=== PATIENT | female | born 1970 | race Caucasian/White ===

== ENCOUNTER → 2016-12-11 | Outpatient (CLI) | payer OTHER ==
--- NOTE | 2016-12-11 17:17 | Diagnostic Imaging Report ---
PROCEDURE: MRI lumbar spine. TECHNIQUE: Multiplanar, multisequence MRI of the lumbar spine was performed without contrast. INDICATION: Back pain, right leg pain. FINDINGS: The previous MRI lumbar spine exam performed on 12/29/2015 noted degenerative disc, ligamentous, and bony disease at L4-5 and L5-S1. Specifically, there was narrowing of the disc space at L5-S1 with desiccation of the disc and bilateral foraminal stenosis. There was also mild trefoil stenosis at L4-5 with neural foraminal narrowing, again more so on the right. Those degenerative changes are again visualized on this study and do not seem to have progressed. At the L3-4 level, there is a slight disc bulge centrally. The disc narrows the AP diameter of the thecal sac to 10.4 mm. This is similar to the prior exam. There is mild narrowing of the neural foramen bilaterally at this level. At the L2-3 level, there is no evidence for spinal stenosis or nerve root encroachment. The L1-2 level is also unremarkable for spinal stenosis or nerve root encroachment. There is no abnormal signal arising from the cord or the vertebral bodies to indicate an acute abnormality. There is no sign of a paraspinal mass. IMPRESSION: 1. The degenerative disc, ligamentous, and bony disease at the L4-5 and L5-S1 level seen previously does not appear to have progressed significantly. There is still mild trefoil stenosis at both these levels as well as narrowing of the neural foramen bilaterally, particularly on the right. 2. The remainder of the lumbar spine is unchanged when compared to the prior study. No new area of spinal stenosis or nerve root encroachment has developed. 3. There is no acute bony abnormality identified, and there is no sign of a cord lesion. Dictated by: Dictated on workstation # [id number]
== END ==
LOC: RAD 16:02
PROVIDERS: ATTEND Orthopaedic Surgery
DX: M47.817 Spondylosis without myelopathy or radiculopathy, lumbosacral region (principal); M51.37 Other intervertebral disc degeneration, lumbosacral region
CPT/HCPCS: 72148

== ENCOUNTER → 2019-07-07 | Outpatient (CLI) | payer OTHER ==
--- NOTE | 2019-07-07 09:03 | Diagnostic Imaging Report ---
INDICATION: Routine screening. COMPARISON: 05/08/2012. TECHNIQUE: 2D and 3D bilateral screening mammography was performed with CAD. FINDINGS: Both breasts are heterogeneously dense, limiting the sensitivity of mammography. There are densities in the outer portions of both breasts which appear more prominent than on the prior exam. In the right breast at posterior depth, there is a slightly irregular density, best seen on the CC view. Additional views of this should be performed. In the left breast in the outer aspect and at posterior depth, there is a density (best seen on tomographic image #48) on the CC views. Additional views of this area should be performed as well. No definite correlates are identified on the MLO views. No suspicious microcalcifications are seen. The axillae are unremarkable. IMPRESSION: Bilateral breast densities. Additional views are recommended for further evaluation. ACR BI-RADS Category 0: Incomplete. (Needs additional imaging evaluation). Result letter will be mailed to the patient. Note: At least 10% of breast cancer is not imaged by mammography. Dictated by: Dictated on workstation # [id number]
== END ==
LOC: RAD 07:56
PROVIDERS: ATTEND Obstetrics & Gynecology
DX: Z12.31 Encounter for screening mammogram for malignant neoplasm of breast (principal)
CPT/HCPCS: 77067

== ENCOUNTER → 2019-11-12 | Outpatient (CLI) | payer OTHER ==
--- NOTE | 2019-11-12 17:29 | Diagnostic Imaging Report ---
INDICATION: Bilateral breast densities. Patient presented for additional views. CORRELATION is made with recent screening study from 07/07/2019. 2-D and 3-D bilateral diagnostic mammography was performed with CAD. This includes spot compression CC views bilaterally, rolled CC views bilaterally as well as mediolateral views bilaterally. Also a spot compression mediolateral view on the right was performed. There is a persistent nodular density in the outer aspect of the right breast posterior depth approximately 8 to 9 cm from the nipple. Further evaluation of this area with ultrasound is recommended. The density noted in the outer left breast on screening study appears to resolve with additional views and most likely represents superimposed tissue. IMPRESSION: BI-RADS 0. 1. Unremarkable left breast. 2. Persistent slightly nodular density in the outer right breast posterior depth. Further evaluation with ultrasound is recommended and will be performed today. ACR BI-RADS Category 0: Incomplete. (Needs additional imaging evaluation). Result letter will be mailed to the patient. Note: At least 10% of breast cancer is not imaged by mammography. Dictated by: Dictated on workstation # [id number]
--- NOTE | 2019-11-12 20:28 | Diagnostic Imaging Report ---
INDICATION: Right breast density. COMPARISON: Correlation is made with diagnostic mammogram earlier the same day as well as screening mammogram from 07/07/2019. EXAMINATION: Sonographic interrogation of the outer right breast was performed. FINDINGS: There is an area of slightly irregular hypoechogenicity at the 8:30 location of the right breast, 6 cm from the nipple. This measures 7 mm x 6 cm x 10 mm. This is concerning for a small breast mass. No internal vascularity is seen. There are some dilated ducts in the retroareolar right breast. Right axilla is unremarkable. IMPRESSION: Irregular hypoechogenicity at the 8:30 location of right breast, 6 cm from the nipple, concerning for a small breast neoplasm. Tissue sampling is recommended. This would be amenable to ultrasound-guided core biopsy. ACR BI-RADS Category 4: Suspicious abnormality. Result letter will be mailed to the patient. Note: At least 10% of breast cancer is not imaged by mammography. Dictated by: Dictated on workstation # [id number]
== END ==
LOC: RAD 14:03
PROVIDERS: ATTEND Obstetrics & Gynecology
DX: R92.2 Inconclusive mammogram (principal)
CPT/HCPCS: 76642; 77066; G0279; 77062

== ENCOUNTER → 2019-11-18 | Outpatient (CLI) | payer OTHER ==
[~2019-11-18] VITALS: Ht 170.2 cm; Wt 101.4 kg
[~2019-11-18] MED LIST: LIDOCAINE 1% INJ 20 ML 20 ML VIAL INJ ONE
--- NOTE | 2019-11-18 10:14 | Diagnostic Imaging Report ---
INDICATION: Right breast nodule. Patient presents for biopsy. DETAILS OF THE PROCEDURE: The patient was brought to the procedure room and placed on the table in the supine position. Ultrasound imaging of the right breast was performed to evaluate for an appropriate entry site. The right breast was then prepped and draped in the usual sterile fashion. A small amount of 1% lidocaine was utilized for local anesthesia. A total of five core biopsies of the hypoechoic nodule at the 8:30 to 9 o'clock location of the right breast 6 cm from the nipple was performed utilizing a 14-gauge Achieve needle. A marker clip was then deployed. Hemostasis was obtained using manual compression. The patient tolerated the procedure well. The patient obtained a post procedure mammogram and then left the Department in satisfactory condition. IMPRESSION: Successful ultrasound-guided core biopsy of the hypoechoic nodule at the 8:30 to 9 o'clock location of the right breast. The Pathology results are currently pending. Dictated by: Dictated on workstation # [id number]
--- NOTE | 2019-11-18 10:24 | Diagnostic Imaging Report ---
INDICATION: Right breast nodule, status post biopsy. TECHNIQUE: Unilateral right CC and ML 2D mammography was performed [id number] biopsy. FINDINGS: A marker clip is identified in the outer aspect of the right breast at mid depth. IMPRESSION: Marker clip, status post ultrasound-guided biopsy. Dictated by: Dictated on workstation # [id number]
== END ==
LOC: RAD 08:22
PROVIDERS: ATTEND Obstetrics & Gynecology
DX: N63.10 Unspecified lump in the right breast, unspecified quadrant (principal)
CPT/HCPCS: 19083; 77065; A4648; G0279

== ENCOUNTER → 2020-02-21 | Outpatient (CLI) | payer OTHER | LOC: LABNPT 05:50 | PROVIDERS: ATTEND Surgery | DX: Z20.828 Contact with and (suspected) exposure to other viral communicable diseases (principal) | CPT/HCPCS: 87635 ==

== ENCOUNTER → 2020-03-13 | Outpatient (CLI) | payer OTHER | LOC: LABNPT 08:09 | PROVIDERS: ATTEND Surgery | DX: Z01.812 Encounter for preprocedural laboratory examination (principal); Z20.828 Contact with and (suspected) exposure to other viral communicable diseases | CPT/HCPCS: 87635 ==

== ENCOUNTER → 2020-04-10 | Outpatient (CLI) | payer OTHER | LOC: LABNPT 05:15 | PROVIDERS: ATTEND Surgery | DX: Z20.828 Contact with and (suspected) exposure to other viral communicable diseases (principal) | CPT/HCPCS: 87635 ==

== ENCOUNTER → 2020-05-08 | Outpatient (CLI) | payer OTHER | LOC: LABNPT 09:12 | PROVIDERS: ATTEND Family Medicine | DX: Z20.822 Contact with and (suspected) exposure to COVID-19 (principal) | CPT/HCPCS: 87635 ==

== ENCOUNTER → 2020-06-12 | Outpatient (CLI) | payer OTHER | LOC: LABNPT 08:25 | PROVIDERS: ATTEND Nurse Practitioner Family | DX: C50.511 Malignant neoplasm of lower-outer quadrant of right female breast (principal); Z17.0 Estrogen receptor positive status [ER+]; Z20.822 Contact with and (suspected) exposure to COVID-19 | CPT/HCPCS: 87635 ==

== ENCOUNTER 2020-10-27 08:00 | Emergency (ER) | payer OTHER ==
[~2020-10-27] VITALS: Ht 171 cm; Wt 104.0 kg
[2020-10-27 08:30] LABS: BASOPHILS % (AUTO) 0 % (0-10); EOSINOPHILS # (AUTO) 0.3 10^3/uL (0.0-0.3); EOSINOPHILS % (AUTO) 4 % (0-10); HEMATOCRIT 38 % (35-52); HEMOGLOBIN 12.1 g/dL (11.5-16.0); LYMPHOCYTES # (AUTO) 1.3 10^3/uL (1.0-4.0); LYMPHOCYTES % (AUTO) 17 % (12-44); MEAN CORPUSCULAR HEMOGLOBIN 28 pg (25-34); MEAN CORPUSCULAR HGB CONC 32 g/dL (32-36); MEAN CORPUSCULAR VOLUME 86 fL (80-99); MEAN PLATELET VOLUME 10.1 fL (9.0-12.2); MONOCYTES # (AUTO) 0.8 10^3/uL (0.0-1.0); MONOCYTES % (AUTO) 10 % (0-12); NEUTROPHILS # (AUTO) 5.2 10^3/uL (1.8-7.8); NEUTROPHILS % (AUTO) 68 % (42-75); PLATELET COUNT 199 10^3/uL (130-400); WHITE BLOOD COUNT 7.6 10^3/uL (4.3-11.0)
[2020-10-27] MEDS ORDERED: [UNRECOGNIZED DRUG - CODE] TP (08:30)
[2020-10-27] MEDS ORDERED: ERGO1250 PO (08:30)
[2020-10-27] MEDS ORDERED: CYAN100T37 PO (08:30)
[2020-10-27] MEDS ORDERED: CALCIUM (08:30)
[2020-10-27] MEDS ORDERED: ANAS1TAB50 PO (08:30)
[2020-10-27] MEDS ORDERED: ALPHA LIPOIC ACID (08:30)
[2020-10-27 08:39] LABS: ALBUMIN 3.8 GM/DL (3.2-4.5)
[2020-10-27 08:40] LABS: CHLORIDE 107 MMOL/L (98-107); POTASSIUM 3.5 MMOL/L (3.6-5.0); SODIUM 142 MMOL/L (135-145)
[2020-10-27 08:41] LABS: CALCIUM 8.7 MG/DL (8.5-10.1)
[2020-10-27 08:42] LABS: GLUCOSE 108 MG/DL (70-105)
[2020-10-27 08:43] LABS: CARBON DIOXIDE 23 MMOL/L (21-32)
--- NOTE | 2020-10-27 08:43 | Diagnostic Imaging Report ---
INDICATION: Chest pain, history of breast cancer. Frontal chest obtained at 8:40 a.m. There is no prior study for comparison. Heart and mediastinal silhouette are normal in appearance. There is relatively poor inspiration and the lungs appear grossly clear. There is no pneumothorax or pleural fluid. Port-A-Cath is seen over the left chest with tip overlying the SVC. IMPRESSION: Relatively poor inspiration but no acute process visualized. Dictated by: Dictated on workstation # [id number]
[2020-10-27 08:44] LABS: BILIRUBIN,TOTAL 0.4 MG/DL (0.1-1.0)
[2020-10-27 08:45] LABS: ALKALINE PHOSPHATASE 66 U/L (40-136)
[2020-10-27 08:46] LABS: CREATININE SERUM 0.75 MG/DL (0.60-1.30); GFR ESTIMATED > 60
[2020-10-27 08:47] LABS: BUN/CREATININE RATIO 16
[2020-10-27 08:48] LABS: MAGNESIUM 1.9 MG/DL (1.6-2.4)
[2020-10-27 08:49] LABS: ALANINE AMINOTRANSFERASE 30 U/L (0-55)
--- NOTE | 2020-10-27 08:53 | ED Chest Pain ---
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 Source: patient Exam Limitations: no limitations History of Present Illness Date Seen by Provider: Oct 27, 2020 Time Seen by Provider: 08:05 Initial Comments This 50-year-old woman presents to the emergency room with complaints of right- sided pleuritic chest pain for about the past 3 hours that is causing significant splinting. She had a hysterectomy performed on October 16. She also has history of breast cancer with history of bilateral mastectomy status post chemotherapy and radiation. She has been vaccinated from COVID-19 and has no other symptoms of Covid such as change in taste or smell, fever, myalgia, etc. Allergies and Home Medications Allergies Coded Allergies: Penicillins (Verified Allergy, Mild, RASH, 11/10/15) Home Medications Apixaban 5 Mg Tablet, 5 MG PO BID TAKE 2 TABLETS BID X 7 DAYS, THEN 1 TABLET BID Prescribed by: LEILANI BURRIS on 10/27/20 1018 Cefdinir 300 Mg Capsule, 300 MG PO BID Prescribed by: LEILANI BURRIS on 10/27/20 1018 Oxycodone HCl/Acetaminophen 1 Each Tablet, 1 TAB PO Q4H PRN for PAIN-MODERATE (5-7) Prescribed by: LEILANI BURRIS on 10/27/20 1019 Patient Home Medication List Home Medication List Reviewed: Yes Review of Systems Review of Systems Constitutional: no symptoms reported EENTM: No Symptoms Reported Respiratory: See HPI Cardiovascular: See HPI Gastrointestinal: No Symptoms Reported Genitourinary: No Symptoms Reported Musculoskeletal: no symptoms reported Skin: no symptoms reported Psychiatric/Neurological: No Symptoms Reported Endocrine: No Symptoms Reported Hematologic/Lymphatic: No Symptoms Reported Past Sjuxegk-Ndufxc-Nnzpxs Hx Patient Social History Tobacco Use?: No Smoking Status: Never a Smoker Substance use?: No Alcohol Use?: No Immunizations Up To Date COVID19 Vaccine Health And Wellness Director: MODERNA Past Medical History Surgeries: Yes Breast (Bilateral mastectomy), Hysterectomy Respiratory: No Cardiac: No Neurological: No : No Reproductive Disorders: No 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 0.0oz. 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 Skin: Normal Color, Warm/Dry; No Rash Progress/Results/Core Measures Results/Orders Lab Results Laboratory Tests Test 10/27/20 08:20 10/27/20 08:47 Range/Units White Blood Count 7.6 4.3-11.0 10^3/uL Red Blood Count 4.34 3.80-5.11 10^6/uL Hemoglobin 12.1 11.5-16.0 g/dL Hematocrit 38 35-52 % Mean Corpuscular Volume 86 80-99 fL Mean Corpuscular Hemoglobin 28 25-34 pg Mean Corpuscular Hemoglobin Concent 32 32-36 g/dL Red Cell Distribution Width 14.0 10.0-14.5 % Platelet Count 199 130-400 10^3/uL Mean Platelet Volume 10.1 9.0-12.2 fL Immature Granulocyte % (Auto) 1 % Neutrophils (%) (Auto) 68 42-75 % Lymphocytes (%) (Auto) 17 12-44 % Monocytes (%) (Auto) 10 0-12 % Eosinophils (%) (Auto) 4 0-10 % Basophils (%) (Auto) 0 0-10 % Neutrophils # (Auto) 5.2 1.8-7.8 10^3/uL Lymphocytes # (Auto) 1.3 1.0-4.0 10^3/uL Monocytes # (Auto) 0.8 0.0-1.0 10^3/uL Eosinophils # (Auto) 0.3 0.0-0.3 10^3/uL Basophils # (Auto) 0.0 0.0-0.1 10^3/uL Immature Granulocyte # (Auto) 0.1 0.0-0.1 10^3/uL Sodium Level 142 135-145 MMOL/L Potassium Level 3.5 L 3.6-5.0 MMOL/L Chloride Level 107 98-107 MMOL/L Carbon Dioxide Level 23 21-32 MMOL/L Anion Gap 12 5-14 MMOL/L Blood Urea Nitrogen 12 7-18 MG/DL Creatinine 0.75 0.60-1.30 MG/DL Estimat Glomerular Filtration Rate > 60 BUN/Creatinine Ratio 16 Glucose Level 108 H 70-105 MG/DL Calcium Level 8.7 8.5-10.1 MG/DL Corrected Calcium 8.9 8.5-10.1 MG/DL Magnesium Level 1.9 1.6-2.4 MG/DL Total Bilirubin 0.4 0.1-1.0 MG/DL Aspartate Amino Transf (AST/SGOT) 17 5-34 U/L Alanine Aminotransferase (ALT/SGPT) 30 0-55 U/L Alkaline Phosphatase 66 40-136 U/L Myoglobin 52.8 10.0-92.0 NG/ML Troponin I < 0.028 <0.028 NG/ML C-Reactive Protein High Sensitivity 3.30 H 0.00-0.50 MG/DL Total Protein 6.0 L 6.4-8.2 GM/DL Albumin 3.8 3.2-4.5 GM/DL Prothrombin Time 13.4 12.2-14.7 SEC INR Comment 1.0 0.8-1.4 Activated Partial Thromboplast Time 26 24-35 SEC D-Dimer 2.52 H 0.00-0.49 UG/ML My Orders Orders - LEILANI CROW MD Cbc With Automated Diff (10/27/20 08:04) Magnesium (10/27/20 08:04) Chest 1 View, Ap/Pa Only (10/27/20 08:04) Ekg Tracing (10/27/20 08:04) Comprehensive Metabolic Panel (10/27/20 08:04) Myoglobin Serum (10/27/20 08:04) Protime With Inr (10/27/20 08:04) Partial Thromboplastin Time (10/27/20 08:04) O2 (10/27/20 08:04) Monitor-Rhythm Ecg Trace Only (10/27/20 08:04) Ed Iv/Invasive Line Start (10/27/20 08:04) Troponin I (10/27/20 08:04) Fibrin Degradation Products (10/27/20 08:12) Ct Angio Chest W (10/27/20 08:53) Iohexol Injection (Omnipaque 350 Mg/Ml 1 (10/27/20 09:15) Received Contrast (Hold Metformin- Contr (10/27/20 09:15) Ns (Ivpb) (Sodium Chloride 0.9% Ivpb Bag (10/27/20 09:15) Hs C Reactive Protein (10/27/20 09:36) Morphine Injection (Morphine Injection (10/27/20 10:11) Apixaban Tablet (Eliquis Tablet) (10/27/20 10:15) Ceftriaxone (Rocephin) (10/27/20 10:15) Medications Given in ED Current Medications Medications Dose Ordered Sig/Semaj Route Start Time Stop Time Status Last Admin Dose Admin Apixaban 10 mg ONCE ONCE PO 10/27/20 10:15 10/27/20 10:16 DC 10/27/20 10:25 10 MG Ceftriaxone Sodium 1000 mg/ Sterile Water 10 ml @ 200 mls/hr ONCE ONCE IV 10/27/20 10:15 10/27/20 10:17 DC 10/27/20 10:26 200 MLS/HR Iohexol 125 ml ONCE ONCE IV 10/27/20 09:15 10/27/20 09:29 DC 10/27/20 09:20 83 ML Sodium Chloride 100 ml ONCE ONCE IV 10/27/20 09:15 10/27/20 09:29 DC 10/27/20 09:20 80 ML Vital Signs/I&O 10/27/20 10/27/20 10/27/20 10/27/20 08:05 08:06 08:16 10:26 Temp 36.2 36.2 Pulse 81 Resp 22 B/P (MAP) 151/86 (107) Pulse Ox 99 99 O2 Delivery Nasal Cannula Nasal Cannula Nasal Cannula O2 Flow Rate 2.00 2.00 2.00 10/27/20 10:45 Temp 36.2 Pulse 75 Resp 20 B/P (MAP) 132/70 (107) Pulse Ox 94 O2 Delivery Room Air Blood Pressure Mean: 107 Progress Progress Note : Progress Note D-dimer was elevated and CT angiogram was obtained revealing pulmonary embolus. There was no significant evidence of right heart strain. There was consolidation in the right lung consistent with infarct and/or pneumonia. Rocephin was given for treatment of possible pneumonia and Omnicef was presc ribed. Morphine was given for pain. Percocet was prescribed for home use. The first dose of Eliquis was administered in the ER. Initial ECG Impression Date: Oct 27, 2020 Initial ECG Impression Time: 08:05 Initial ECG Rate: 77 Initial ECG Rhythm: Normal Sinus Initial ECG Intervals: Normal Initial ECG Impression: Normal Comment Normal sinus rhythm with no ST elevation or depression. No abnormal intervals or axis deviation. Diagnostic Imaging Diagonstic Imaging: Xray Plain Films/CT/US/NM/MRI: chest Comments Chest x-ray viewed by me. Report reviewed. See report below: NAME: DYLAN JACKSON [facility] REC#: [id number] PT STATUS: REG ER : 1970 PHYSICIAN: LEILANI CROW MD ADMIT DATE: 10/27/20/ER Draft Date of Exam:10/27/20 CHEST 1 VIEW, AP/PA ONLY INDICATION: Chest pain, history of breast cancer. Frontal chest obtained at 8:40 a.m. There is no prior study for comparison. Heart and mediastinal silhouette are normal in appearance. There is relatively poor inspiration and the lungs appear grossly clear. There is no pneumothorax or pleural fluid. Port-A-Cath is seen over the left chest with tip overlying the SVC. IMPRESSION: Relatively poor inspiration but no acute process visualized. Dictated on workstation # [id number] Dict: 10/27/20 0841 Trans: 10/27/2042 CV [id number] Interpreted by: RODERICK ORDONEZ MD Diagonstic Imaging: CT Plain Films/CT/US/NM/MRI: chest Comments CT angiogram chest viewed by me and report reviewed. Discussed with the radiologist. See report below: NAME: DYLAN JACKSON [facility] REC#: [id number] PT STATUS: REG ER : 1970 PHYSICIAN: LEILANI CROW MD ADMIT DATE: 10/27/20/ER Draft Date of Exam:10/27/20 CT ANGIO CHEST W PROCEDURE: CT angiography of the chest with contrast. TECHNIQUE: Multiple contiguous axial images were obtained through the chest after uneventful bolus administration of intravenous contrast. 3D reconstructed CTA MIP acquisitions were also performed. Auto Exposure Controls were utilized during the CT exam to meet ALARA standards for radiation dose reduction. INDICATION: Chest pain. Patient has history of breast cancer with bilateral mastectomy. Evaluation of pulmonary arterial system does demonstrate bilateral pulmonary emboli. There are filling defects identified within lobar and segmental branches to the left upper lobe as well as the left lower lobe. There appear to be segmental and subsegmental emboli to the right lower lobe. There is an area of parenchymal consolidation the posterior right lower lobe consistent with pneumonia or infarct. Trace right-sided pleural fluid is seen. There is no evidence of right heart strain. No pericardial fluid is detected. Imaging through the upper abdomen is unremarkable. There are postoperative changes bilateral mastectomies with tissue expanders bilaterally. IMPRESSION: 1. Bilateral pulmonary emboli without evidence of saddle embolus or right heart strain. There is trace right-sided pleural effusion. There is also airspace parenchymal disease in right lower lobe consistent with pneumonia or potentially pulmonary infarct. Results were discussed with Dr. Burris of the emergency Department prior to this dictation. Dictated on workstation # [id number] Dict: 10/27/2032 Trans: 10/27/20 0942 [facility] [id number] Interpreted by: JERRI MAZA MD Departure Impression Primary Impression: Bilateral pulmonary embolism Additional Impressions: Pleuritic chest pain Pleural effusion, right Disposition: 01 HOME, SELF-CARE Condition: Improved Departure-Patient Inst. Decision time for Depature: 10:15 Referrals: MAHENDRA CAMPBELL DO (PCP/Family) Primary Care Physician Patient Instructions: Pulmonary Embolism (Blood Clot in the Lungs) Add. Discharge Instructions: Start your Eliquis prescription late this evening. Avoid use of NSAIDs or any other blood thinning medications while on Eliquis. Obtain a pulse oximeter and check your oxygen saturations a few times each day to ensure stability. Use Percocet as prescribed to manage your pain. Exercise deep breathing or incentive spirometry several times each day. Call with questions or concerns. Return to the ER if you have worsening symptoms or persistent oxygen saturations lower than 92%. Follow-up with your primary care provider and oncology team next week. All discharge instructions reviewed with patient and/or family. Voiced understanding. Scripts Apixaban (Eliquis) 5 Mg Tablet 5 MG PO BID for 30 Days, #72 TAB TAKE 2 TABLETS BID X 7 DAYS, THEN 1 TABLET BID Prov: LEILANI CROW MD 10/27/20 Oxycodone HCl/Acetaminophen (Percocet 5-325 mg Tablet) 1 Each Tablet 1 TAB PO Q4H PRN for PAIN-MODERATE (5-7) MDD 6 TABS, #20 TAB Prov: LEILANI CROW MD 10/27/20 Cefdinir (Cefdinir) 300 Mg Capsule 300 MG PO BID, #14 CAP 0 Refills Prov: LEILANI CROW MD 10/27/20 Copy Copies To 1: MAHENDRA CAMPBELL JOSHUA T MD Oct 27, 2020 08:53
[2020-10-27 09:05] LABS: PROTHROMBIN TIME PATIENT 13.4 SEC (12.2-14.7)
[2020-10-27] MEDS ORDERED: NS 100 ML (IVPB) BAG IV ONE (09:15)
[2020-10-27] MEDS ORDERED: IOHEXOL 350 MG/ML 150 ML (OMNIPAQUE 350) VIAL IV ONE (09:15)
[2020-10-27] MEDS ORDERED: HOLD METFORMIN - RECEIVED CONTRAST 20 ML VIAL IV SCH (09:15)
--- NOTE | 2020-10-27 09:43 | Diagnostic Imaging Report ---
PROCEDURE: CT angiography of the chest with contrast. TECHNIQUE: Multiple contiguous axial images were obtained through the chest after uneventful bolus administration of intravenous contrast. 3D reconstructed CTA MIP acquisitions were also performed. Auto Exposure Controls were utilized during the CT exam to meet ALARA standards for radiation dose reduction. INDICATION: Chest pain. Patient has history of breast cancer with bilateral mastectomy. Evaluation of pulmonary arterial system does demonstrate bilateral pulmonary emboli. There are filling defects identified within lobar and segmental branches to the left upper lobe as well as the left lower lobe. There appear to be segmental and subsegmental emboli to the right lower lobe. There is an area of parenchymal consolidation the posterior right lower lobe consistent with pneumonia or infarct. Trace right-sided pleural fluid is seen. There is no evidence of right heart strain. No pericardial fluid is detected. Imaging through the upper abdomen is unremarkable. There are postoperative changes bilateral mastectomies with tissue expanders bilaterally. IMPRESSION: 1. Bilateral pulmonary emboli without evidence of saddle embolus or right heart strain. There is trace right-sided pleural effusion. There is also airspace parenchymal disease in right lower lobe consistent with pneumonia or potentially pulmonary infarct. Results were discussed with Dr. Burris of the emergency Department prior to this dictation. Dictated by: Dictated on workstation # [id number]
[2020-10-27] MEDS ORDERED: morphine INJ 10 MG/ML 1ML (SYR OR VIAL) IVP STA (10:11)
[2020-10-27] MEDS ORDERED: cefTRIAXone 1,000 MG in WATER (STERILE) FOR INJECTION 10 ML IV ONE (10:15)
[2020-10-27] MEDS ORDERED: APIXABAN 5 MG (ELIQUIS) TABLET PO ONE (10:15)
[2020-10-27] MEDS ORDERED: OXYC1TAB87 PO (10:18)
[2020-10-27] MEDS ORDERED: CEFD300C3 PO (10:18)
[2020-10-27] MEDS ORDERED: APIX5TAB PO (10:18)
[2020-10-27 10:45] VITALS: BP 132/70
== END 2020-10-27 10:45 | disposition home or self-care (01) ==
LOC: EDUNIT# 08:00 → ER 08:03
DX: I26.99 Other pulmonary embolism without acute cor pulmonale (principal); R07.81 Pleurodynia; J90 Pleural effusion, not elsewhere classified; Z85.3 Personal history of malignant neoplasm of breast; Z79.01 Long term (current) use of anticoagulants
CPT/HCPCS: 36415; 71045; 71275; 80053; 83735; 83874; 84484; 85025; 85379; 85610; 85730; 86141; 93005; 93041

== ENCOUNTER → 2021-07-09 | Outpatient (CLI) | payer OTHER ==
[~2021-07-09] MED LIST changes: +ALPHA LIPOIC ACID; +ANAS1TAB50 PO; +APIX5TAB PO; +CALCIUM; +CEFD300C3 PO; +CYAN100T37 PO; +ERGO1250 PO; -LIDOCAINE 1% INJ 20 ML 20 ML VIAL INJ ONE; +OXYC1TAB87 PO; +[UNRECOGNIZED DRUG - CODE] TP
--- NOTE | 2021-07-09 12:45 | Diagnostic Imaging Report ---
INDICATION: Right breast lump. Patient has had prior right mastectomy with flap reconstruction. COMPARISON: Correlation is made with the diagnostic mammogram performed earlier this same day. FINDINGS: Interrogation of the area of lump in the right breast was performed. This corresponds to the 8 o'clock location 8-9 cm from the nipple. No sonographic abnormality is seen. No solid or cystic breast mass is detected. IMPRESSION: No sonographic abnormality is detected. Continued close clinical and self breast exams are recommended to confirm stability of the palpable abnormality. Negative imaging should not necessarily preclude biopsy of a clinically palpable abnormality. ACR BI-RADS Category 1: Negative. Dictated by: Dictated on workstation # [id number]
--- NOTE | 2021-07-09 12:49 | Diagnostic Imaging Report ---
INDICATION: Right breast carcinoma status post mastectomy. Patient has a new lump in the right breast. Correlation is made with prior mammogram 11/18/2019 and 07/07/2019. Unilateral right 2-D and 3-D diagnostic mammography was performed. There are postop changes of a right mastectomy. Patient has had a flap reconstruction. There is surgical clips in the outer right breast. BB markers placed at the area of palpable abnormality. There is some mild density in this region but no discrete mass. No suspicious microcalcifications are seen. Right axilla demonstrates surgical clips. IMPRESSION: Postop changes with right mastectomy and right flap reconstruction. No discrete mass is seen. Even so, directed sonographic interrogation of the area of palpable abnormality is recommended and will be performed today. ACR BI-RADS Category 0: Incomplete. (Needs additional imaging evaluation). Result letter will be mailed to the patient. Note: At least 10% of breast cancer is not imaged by mammography. BI-RADS 0 Dictated by: Dictated on workstation # [id number]
== END ==
LOC: RAD 10:30
DX: C50.611 Malignant neoplasm of axillary tail of right female breast (principal); T66.XXXA Radiation sickness, unspecified, initial encounter; Z90.11 Acquired absence of right breast and nipple; Z17.0 Estrogen receptor positive status [ER+]
CPT/HCPCS: 76642; 77065; G0279

== ENCOUNTER → 2022-02-21 | Outpatient (CLI) | payer OTHER ==
--- NOTE | 2022-02-21 17:22 | Diagnostic Imaging Report ---
PROCEDURE: US Thyroid. TECHNIQUE: Multiple real-time grayscale images were obtained of the thyroid in various projections. INDICATION: Hyperthyroidism. FINDINGS: Right lobe of the thyroid gland measures 3.7 x 1.1 x 0.9 cm with an approximately 0.5 cm solid-appearing nodule in the upper pole of the right lobe. This demonstrates no hyperemia. Left lobe measures 4.3 x 1.2 x 1.3 cm with an approximately 0.6 cm solid-appearing nodule with similar characteristics in the lower pole of the left lobe. No hyperemia is identified and no periglandular abnormality was documented. IMPRESSION: Bilateral subcentimeter hypoechoic nodules are nonspecific. These could represent colloid cysts or adenomas. If indicated, additional follow-up study could be performed in 6-12 months to document ongoing stability. Dictated by: Dictated on workstation # [id number]
== END ==
LOC: RAD 14:27
PROVIDERS: ATTEND Family Medicine
DX: E04.2 Nontoxic multinodular goiter (principal)
CPT/HCPCS: 76536